=== PATIENT | female | born 1975 | race Caucasian/White ===

== ENCOUNTER → 2020-09-15 13:44 | Outpatient (CLI) | payer BC ==
[~2020-09-15] VITALS: Ht 160 cm; Wt 104.5 kg
[2020-09-16 10:30] VITALS: BP 135/66; Ht 160 cm; Wt 104.5 kg
== END | disposition home or self-care (01) ==
LOC: D.LAB 13:44
PROVIDERS: ATTEND Internal Medicine Medical Oncology
DX: C50.312 Malignant neoplasm of lower-inner quadrant of left female breast (principal); Z51.11 Encounter for antineoplastic chemotherapy; D64.81 Anemia due to antineoplastic chemotherapy

== ENCOUNTER → 2020-09-16 10:09 | Outpatient (CLI) | payer BC ==
[2020-09-16 10:30] VITALS: BMI 40.8
== END | disposition home or self-care (01) ==
LOC: D.OPS 10:00
PROVIDERS: ATTEND Internal Medicine Medical Oncology
DX: C50.312 Malignant neoplasm of lower-inner quadrant of left female breast (principal); Z51.11 Encounter for antineoplastic chemotherapy; D64.81 Anemia due to antineoplastic chemotherapy